=== PATIENT | male | born 1970 | race Caucasian/White ===

== ENCOUNTER 2018-10-07 22:50 | Emergency (ER) | payer OTHER ==
[~2018-10-07] VITALS: Ht 188 cm; Wt 70.8 kg
[~2018-10-07 22:50] MED LIST: ATEN25 PO; CRUTCH USE; HYDACE5 PO; LISI20 PO; NAPR550 PO; OXYACE5T PO; Percocet 5-3251 EACH PO
[2018-10-07] MEDS ORDERED: BRINTELLIX10 MG PO (22:59)
== END 2018-10-08 00:55 | disposition home or self-care (01) ==
LOC: ER 22:50
DX: R19.05 Periumbilic swelling, mass or lump (principal); Z79.899 Other long term (current) drug therapy; F17.200 Nicotine dependence, unspecified, uncomplicated
CPT/HCPCS: 99282

== ENCOUNTER 2020-12-17 13:09 | Day surgery (SDC) | payer OTHER ==
[~2020-12-17] VITALS: Ht 190.5 cm; Wt 69.9 kg
[~2020-12-17 13:09] MED LIST changes: +BRINTELLIX10 MG PO; +BUPR150ER PO; +HYDHCL25 PO; +PROAIR DIGIHAL90 MCG INH
--- NOTE | 2020-12-17 13:50 | NUR ---
12/17/[address] WAS NOTIFIED THAT PT. TOOK A SIP OF SODA AT 1245. PER DR. DELEON OK TO PROCEED. PT. VERIFIED IT WAS ONLY A SIP & HE DID IT TO CALM HIS NERVES. PT. VERBALIZES BEING WARM ENOUGH. CALL LIGHT IS WITHIN REACH.
--- NOTE | 2020-12-17 15:39 | NUR ---
12/17/20 1539 Len Yang PT VERY DROWSY. OPENS EYES WHEN CALLING HIS NAME AND RESPONDS BY NODDING HEAD. VS WNL. WILL CONTINUE TO MONITOR.
== END 2020-12-17 15:56 | disposition home or self-care (01) ==
LOC: ORSCSDS 13:09
PROVIDERS: Student in an Organized Health Care Education/Training Program
PROC: 0DBL8ZX Excision of Transverse Colon, Via Natural or Artificial Opening Endoscopic, Diagnostic (ICD-10-PCS; principal; 2020-12-17 14:15)
PROC: 0DBK8ZX Excision of Ascending Colon, Via Natural or Artificial Opening Endoscopic, Diagnostic (ICD-10-PCS; principal; 2020-12-17 14:15)
PROC: 0DBN8ZX Excision of Sigmoid Colon, Via Natural or Artificial Opening Endoscopic, Diagnostic (ICD-10-PCS; principal; 2020-12-17 14:15)
DX: Z12.11 Encounter for screening for malignant neoplasm of colon (principal); D12.5 Benign neoplasm of sigmoid colon; D12.3 Benign neoplasm of transverse colon; D12.2 Benign neoplasm of ascending colon; K57.30 Diverticulosis of large intestine without perforation or abscess without bleeding; F17.210 Nicotine dependence, cigarettes, uncomplicated; J45.909 Unspecified asthma, uncomplicated; I10 Essential (primary) hypertension; Z79.899 Other long term (current) drug therapy
CPT/HCPCS: 88305; J2250; J2704; J7120

== ENCOUNTER 2024-01-08 07:18 | Emergency (ER) | payer OTHER ==
[~2024-01-08] VITALS: Ht 188 cm; Wt 72.6 kg
[2024-01-08 11:20] VITALS: BP 130/83
== END 2024-01-08 11:33 | disposition home or self-care (01) ==
LOC: ER 07:18
DX: J44.1 Chronic obstructive pulmonary disease with (acute) exacerbation (principal); F17.200 Nicotine dependence, unspecified, uncomplicated

== ENCOUNTER 2024-03-20 10:21 | Inpatient (IN) | payer OTHER ==
[~2024-03-20] VITALS: Ht 182.9 cm; Wt 67.6 kg
[~2024-03-20 10:21] MED LIST changes: +ALBU90OI INH; +DOXY100 PO; +PRED20 PO
[2024-03-20] MEDS ORDERED: NS 1,000 ML IV SCH ×2 (11:10→13:45)
[2024-03-20] MEDS ORDERED: Ipratropium/Albuterol SulF 2.5-0.5MG/3 ML Amp INH ONE (11:15)
[2024-03-20] MEDS ORDERED: MethylPREDNISolone Sod Succ 125 MG Vial IV ONE (11:15)
[2024-03-20 11:29] LABS: BASOPHILS ABSOLUTE AUTO 0.06 K/mm3 (0.00-0.23); BASOPHILS PERCENT AUTO 1 % (0-2); EOSINOPHILS ABSOLUTE AUTO 0.18 K/mm3 (0.00-0.68); EOSINOPHILS PERCENT AUTO 2 % (0-6); Hematocrit 44.5 % (37.0-53.0); Hemoglobin 15.4 g/dL (13.5-17.5); IMMATURE GRAN ABSOLUTE AUTO 0.01 K/mm3 (0.00-0.10); IMMATURE GRAN PERCENT AUTO 0 % (0-1); LYMPHOCYTES ABSOLUTE AUTO 0.86 K/mm3 (0.84-5.20); LYMPHOCYTES PERCENT AUTO 12 % (21-46); MONOCYTES ABSOLUTE AUTO 1.93 K/mm3 (0.16-1.47); MONOCYTES PERCENT AUTO 26 % (4-13); Mean Corpuscular HGB 31.8 pg (26.0-34.0); Mean Corpuscular HGB Conc 34.6 g/dL (31.5-36.5); Mean Corpuscular Volume 92 fL (80-100); Mean Platelet Volume 8.6 fL (9.1-12.4); NEUTROPHILS ABSOLUTE AUTO 4.35 K/mm3 (1.96-9.15); NEUTROPHILS PERCENT AUTO 59 % (41-73); Platelet Count 306 K/mm3 (150-400); RDW Coefficient Variation 11.9 % (11.7-14.2); RDW Standard Deviation 40.5 fL (35.1-46.3); Red Blood Cell Count 4.84 M/mm3 (4.30-5.90); White Blood Cell Count 7.39 K/mm3 (4.00-11.30)
[2024-03-20 11:54] LABS: Albumin, Blood 3.5 g/dL (3.4-5.0); Albumin/Globulin Ratio 0.9 (0.8-1.8); Bilirubin, Total 0.4 mg/dL (0.1-1.0); Bun/Creatinine Ratio 13.4 (12.0-20.0); Calcium, Blood 8.3 mg/dL (8.5-10.1); Creatinine, Blood 0.82 mg/dL (0.60-1.20); Globulin, Blood 3.9 g/dL (2.2-4.0); Potassium, Blood 3.6 mmol/L (3.5-5.5); Total Protein, Blood 7.4 g/dL (6.4-8.2)
[2024-03-20 12:44] LABS: Influenza A, PCR NEGATIVE (NEGATIVE); Influenza B, PCR NEGATIVE (NEGATIVE); Resp Syncytial Virus, PCR NEGATIVE (NEGATIVE)
[2024-03-20 12:45] LABS: SARS-Cov-2 (COVID-19) PCR, MMC POSITIVE (NEGATIVE)
[2024-03-20] MEDS ORDERED: Aspirin 325 MG Tab PO ONE (13:05)
[2024-03-20] MEDS ORDERED: Clopidogrel Bisulfate 75 MG Tab PO ONE (13:05)
[2024-03-20] MEDS ORDERED: Ondansetron HCl 2 MG / ML 2ML Vial IV PRN (13:45)
[2024-03-20] MEDS ORDERED: Acetaminophen 650 MG Supp PR PRN (13:45)
--- NOTE | 2024-03-20 15:18 | NUR ---
REPORT RECIEVED FROM ER NURSE, TIMOTHY, AT 1510.
[2024-03-20 15:50] VITALS: BP 145/100
[2024-03-20] MEDS ORDERED: MethylPREDNISolone Sod Succ 125 MG Vial IV SCH (16:00)
--- NOTE | 2024-03-20 17:16 | NUR ---
ARRIVAL TO PCU PT ARRIVED TO PCU AT 1535 VIA GURNEY AND ON RA. PT ABLE TO TRANSFER TO HOSPITAL BED WITH SOME ASSISTANCE FROM STAFF, PT HAD SLIGHT LIMITATION BUT TOLERATED WELL USING FWW. PT A/OX4. PT REPORTED NUMBNESS TO HIS LEFT EXTREMITIES BUT ALSO STATED THAT HE PREVIOUS HAD A BONE SPUR IN HIS SPINE THAT CAUSED SOME THE HIS NUMBNESS. PT DID REPORT THAT HIS NUMBNESS HAS INCREASED THAT LAST 2 DAYS. PT RIGHT HAND AND FOOT NORMAL STRENGTH, LEFT WEAKER BUT PT ABLE TO USE EXTREMITIES. RIGH T FACIAL DROOP NOTED AT TIME OF ARRIVAL. PT REPORTED "THROBBING PAIN BEHIND MY EYES."
--- NOTE | 2024-03-20 18:15 | NUR ---
SHIFT SUMMARY NO ACUTE CHANGES SINCE ARRIVAL TO UNIT, SEE PREVIOUS NOTES. FAMILY PRESENT AND UPDATED. PT HAD MARKET RESEARCH ANALYST AND CANNABIS CONTAINER IN HIS POCKET AT TIME OF ARRIVAL. PT WILLING ALLOWED STAFF TO LOCK IN LOCK BOX OUTSIDE OF ROOM.
[2024-03-20] MEDS ORDERED: Albuterol 2.5 MG/3 ML VIAL INH PRN (19:30)
[2024-03-20] MEDS ORDERED: Mometasone/Formoterol MDI 100/5 mcg 13 GM INH SCH (19:35)
[2024-03-20] MEDS ORDERED: Ipratropium/Albuterol SulF 2.5-0.5MG/3 ML Amp INH SCH (19:35)
[2024-03-20 19:46] VITALS: BP 140/100
--- NOTE | 2024-03-21 05:39 | NUR ---
SHIFT SUMMERY PT IS ALERT AND ORIENTED X4, HAS A STAGGERED GAIT BUT PT REPORTS THAT HE HAS HAD THAT FOR YEARS. HE HAS BEEN NON COMPLIANT W/CARE OVERNIGHT, YELLING AT STAFF AND THREATENING TO LEAVE AMA. PT AGREEDED TO STAY UNTIL THIS AM BUT STATED IF HE DID NOT GET CLEARED TO EAT BY 7AM HE WAS LEAVING AMA. CHARGE NURSE AWARE AND PT EDUCATED ON RISKS OF LEAVING AMA. VS HAVE BEEN STABLE AND PT HAS HAD NO ACUTE EPISODES OF HEMODYNAMIC INSTABILITY OVERNIGHT.
[2024-03-21 05:40] VITALS: BP 154/98
[2024-03-21 08:27] VITALS: BP 151/106
[2024-03-21] MEDS ORDERED: Aspirin 81 MG Chew PO SCH (12:00)
[2024-03-21] MEDS ORDERED: Atorvastatin 40 MG Tab PO SCH (12:00)
[2024-03-21] MEDS ORDERED: Clopidogrel Bisulfate 75 MG Tab PO SCH (12:00)
[2024-03-21 16:29] VITALS: BP 149/111
--- NOTE | 2024-03-21 17:45 | NUR ---
TRANSFER FROM PCU PATIENT ALERT AND INTERACTIVE. PATIENT KEEPING R EYE CLOSED BECAUSE OF DOUBLE VISION. PATIENT ANXIOUS AT BEDSIDE BUT COOPERATIVE. PATIENT HOPEFUL TO GO HOME TOMORROW. PATIENT AMBULATING INDEPENDENTLY IN ROOM WITH WALKER. PATIENT STATES L SIDED WEAKNESS HAS IMPROVED SINCE HOSPITALIZATION. PT STATES HE HAS A HX OF NUMBNESS TO L HAND AND L LEG BELOW THE KNEE BECAUSE OF PREVIOUS NECK SURGERY. PATIENT EATING REGULAR FOOD AND DRINKING FLUIDS WITHOUT DIFFICULTY.
--- NOTE | 2024-03-21 18:02 | NUR ---
TRANSFER UPDATE REPORT GIVEN TO MED FLOOR RN AT 1656. PT TRANSFERED AT 1730 VIA WHEELCHAIR AND ON RA. PT BELONGINGS WITH PT AT TIME OF TRANSFER. PT PLANT EQUIPMENT ENGINEER AND CANNABIS CAN IN GREEN BAG AFTER RETRIEVING FROM LOCKED BOX AND GIVEN TO MED FLOOR RN TO PLACE IN LOCK BOX AT NEW ROOM. PT ABLE TO TRANSFER TO AND FROM WHEELCHAIR ON HIS OWN.
[2024-03-21 19:27] VITALS: BP 147/105
[2024-03-22 04:10] VITALS: BP 144/94
--- NOTE | 2024-03-22 04:15 | NUR ---
CROWNING HAMMER OPERATOR NOTES PATIENT IS A&OX4, VITALS ARE SLIGHTLY ELEVATED, ON TELE RUNNING SINUS RHYTHM AT 91 WITH OCCISIONAL SINUS TACHY AT 115. ON ROOM AIR, SHADOW BREATHING NOTICED BUT PATIENT DENIED ANY DIFFICULTY BREATHING. PATIENT IS ON ISOLATION FOR PROLONGED COVID POSITIVE. NO SYMPTOMS NOTICED. PATIENT CURRENT DIAGNOSIS IS PELAEZ POLSY, HAS A RIGHT EYE AND RIGHT FACIAL DROOP, COMPLAIN OF BLURR VISION TO THE RIGHT EYE. COMPLAIN OF NUMBNESS TO LEFT SIDE OF BODY AND NECK. PATIENT DIET IS REGULAR BUT NO STREW RECOMMENDED BY SPEECH.
[2024-03-22 08:05] VITALS: BP 133/84
[2024-03-22] MEDS ORDERED: PredniSONE 20 MG Tab PO SCH (09:00)
[2024-03-22] MEDS ORDERED: AmLODIPine Besylate 5 MG Tab PO SCH (09:00)
[2024-03-22] MEDS ORDERED: Aspir 8181 MG PO (10:29)
[2024-03-22] MEDS ORDERED: Prednisone20 MG PO (10:29)
[2024-03-22] MEDS ORDERED: AMLO5 PO (10:29)
[2024-03-22] MEDS ORDERED: ATOR40TA PO (10:30)
[2024-03-22] MEDS ORDERED: CLOP75 PO (10:30)
[2024-03-22] MEDS ORDERED: DULERA 100 MCG/13 GM INH (10:33)
--- NOTE | 2024-03-22 17:07 | NUR ---
SHIFT SUMMARY AND DISCHARGE PATIENT ALERT AND INTERACTIVE. PATIENT AMBULATING INDEPENDENTLY IN THE ROOM USING A WALKER. PATIENT DENIES ANY PAIN OR SHORTNESS OF BREATH. PATIENT STATES THAT HIS L SIDE WEAKNESS IS ALMOST GONE. COMPAIRED TO WHEN HE CAME IN. PATIENT CONTINUES TO HAVE NUMBNESS OF L HAND AND BELOW L KNEE WHICH IS BASELINE. R FACIAL DROOP AND R EYE LID DROOP STILL PRESENT. PATIENT ABLE TO OPEN R EYE ON DEMAND. R EYE OPENS MORE WHEN L EYE COVERED. EYE PATCH GIVEN TO PATIENT TO USE PERIODICALLY TO EXERCISE R EYE LID. DISCHARGE INSTRUCTIONS REVIEWED WITH PATIENT. IV DC'D AND PATIENT TAKEN OUT VIA WHEELCHAIR BY GENERATOR MAN. MOTHER PRESENT FOR DISCHARGE. FALL RISK AND SAFETY MEASURES FOR AT HOME DISCUSSED.
== END 2024-03-22 11:52 | disposition home or self-care (01) | DRG 64 ==
LOC: ER 10:21 → PCU 13:42 → MEDS 03-21 17:18 → ENPENDDIS 03-22 10:09 → MEDS 03-22 11:52
PROVIDERS: Emergency Medicine; ADMIT Internal Medicine
DX: I63.9 Cerebral infarction, unspecified (principal); U07.1 COVID-19; J44.1 Chronic obstructive pulmonary disease with (acute) exacerbation; R47.1 Dysarthria and anarthria; M54.12 Radiculopathy, cervical region; H53.2 Diplopia; R27.0 Ataxia, unspecified; Z79.52 Long term (current) use of systemic steroids
CPT/HCPCS: 0241U; 70450; 70496; 70498; 70551; 71045; 80053; 85025; 92526; 92610; 93005; 93010; 93306; 94640; 94664; 94760; 96361; 96374-59; 97112; 97112-CQ; 97116; 97162; 97165; 99285-25; A9270; J2919; J7030; J7512; Q9967

== ENCOUNTER 2024-06-03 20:49 | Emergency (ER) | payer OTHER ==
[~2024-06-03] VITALS: Ht 180.3 cm; Wt 74.8 kg
[~2024-06-03 20:49] MED LIST changes: +AMLO5 PO; +ATOR40TA PO; +Aspir 8181 MG PO; +CLOP75 PO; +DULERA 100 MCG/13 GM INH; +Prednisone20 MG PO
[2024-06-03 21:12] VITALS: BP 185/94
[2024-06-03] MEDS ORDERED: Diphth,Pertuss(Acell),Tet Vac 0.5 ML VIAL IM ONE (22:50)
== END 2024-06-03 22:57 | disposition home or self-care (01) ==
LOC: ER 20:49
DX: S71.112A Laceration without foreign body, left thigh, initial encounter (principal); W26.0XXA Contact with knife, initial encounter; J44.9 Chronic obstructive pulmonary disease, unspecified; F17.200 Nicotine dependence, unspecified, uncomplicated; Z23 Encounter for immunization; Z79.899 Other long term (current) drug therapy; Z79.82 Long term (current) use of aspirin
CPT/HCPCS: 12002; 90471; 90715; 99282-25

== ENCOUNTER → 2024-06-06 | Outpatient (CLI) | payer OTHER ==
[2024-06-06 16:19] LABS: BASOPHILS PERCENT AUTO 1 % (0-2); EOSINOPHILS PERCENT AUTO 4 % (0-6); Hematocrit 40.4 % (37.0-53.0); Hemoglobin 13.3 g/dL (13.5-17.5); IMMATURE GRAN ABSOLUTE AUTO 0.04 K/mm3 (0.00-0.10); IMMATURE GRAN PERCENT AUTO 0 % (0-1); LYMPHOCYTES PERCENT AUTO 12 % (21-46); MONOCYTES ABSOLUTE AUTO 1.39 K/mm3 (0.16-1.47); MONOCYTES PERCENT AUTO 12 % (4-13); Mean Corpuscular HGB 31.1 pg (26.0-34.0); Mean Corpuscular HGB Conc 32.9 g/dL (31.5-36.5); Mean Corpuscular Volume 94 fL (80-100); Mean Platelet Volume 8.8 fL (9.1-12.4); NEUTROPHILS ABSOLUTE AUTO 8.04 K/mm3 (1.96-9.15); NEUTROPHILS PERCENT AUTO 71 % (41-73); Platelet Count 366 K/mm3 (150-400); RDW Coefficient Variation 12.2 % (11.7-14.2); RDW Standard Deviation 42.2 fL (35.1-46.3); Red Blood Cell Count 4.28 M/mm3 (4.30-5.90); White Blood Cell Count 11.27 K/mm3 (4.00-11.30)
[2024-06-06 16:31] LABS: Albumin, Blood 3.2 g/dL (3.4-5.0); Albumin/Globulin Ratio 0.9 (0.8-1.8); Bilirubin, Total 0.6 mg/dL (0.1-1.0); Bun/Creatinine Ratio 9.6 (12.0-20.0); Calcium, Blood 8.1 mg/dL (8.5-10.1); Creatinine, Blood 0.83 mg/dL (0.60-1.20); Globulin, Blood 3.5 g/dL (2.2-4.0); Potassium, Blood 3.5 mmol/L (3.5-5.5); Total Protein, Blood 6.7 g/dL (6.4-8.2)
== END ==
LOC: LAB 16:14 → LAB SHORT 16:14
PROVIDERS: Chiropractor
DX: L03.116 Cellulitis of left lower limb (principal); R22.42 Localized swelling, mass and lump, left lower limb
CPT/HCPCS: 80053; 84550; 85025; 85379

== ENCOUNTER 2024-07-13 00:15 | Emergency (ER) | payer OTHER ==
[~2024-07-13] VITALS: Ht 188 cm; Wt 72.6 kg
[2024-07-13] MEDS ORDERED: SULTRIDS PO (00:35)
[2024-07-13 02:09] LABS: BASOPHILS ABSOLUTE AUTO 0.08 K/mm3 (0.00-0.23); BASOPHILS PERCENT AUTO 1 % (0-2); EOSINOPHILS ABSOLUTE AUTO 0.32 K/mm3 (0.00-0.68); EOSINOPHILS PERCENT AUTO 4 % (0-6); Hematocrit 37.2 % (37.0-53.0); Hemoglobin 12.8 g/dL (13.5-17.5); IMMATURE GRAN ABSOLUTE AUTO 0.02 K/mm3 (0.00-0.10); IMMATURE GRAN PERCENT AUTO 0 % (0-1); LYMPHOCYTES PERCENT AUTO 15 % (21-46); MONOCYTES ABSOLUTE AUTO 1.19 K/mm3 (0.16-1.47); MONOCYTES PERCENT AUTO 13 % (4-13); Mean Corpuscular HGB Conc 34.4 g/dL (31.5-36.5); Mean Corpuscular Volume 93 fL (80-100); Mean Platelet Volume 8.5 fL (9.1-12.4); NEUTROPHILS ABSOLUTE AUTO 5.96 K/mm3 (1.96-9.15); NEUTROPHILS PERCENT AUTO 67 % (41-73); Platelet Count 442 K/mm3 (150-400); RDW Coefficient Variation 12.1 % (11.7-14.2); RDW Standard Deviation 41.9 fL (35.1-46.3); White Blood Cell Count 8.87 K/mm3 (4.00-11.30)
[2024-07-13 02:11] LABS: Albumin, Blood 3.4 g/dL (3.4-5.0); Albumin/Globulin Ratio 1.1 (0.8-1.8); Bilirubin, Total 0.3 mg/dL (0.1-1.0); Bun/Creatinine Ratio 15.6 (12.0-20.0); Calcium, Blood 8.4 mg/dL (8.5-10.1); Creatinine, Blood 0.77 mg/dL (0.60-1.20); Globulin, Blood 3.1 g/dL (2.2-4.0); Total Protein, Blood 6.5 g/dL (6.4-8.2)
[2024-07-13 03:09] VITALS: BP 150/100
== END 2024-07-13 03:10 | disposition home or self-care (01) ==
LOC: ER 00:15
PROVIDERS: Student in an Organized Health Care Education/Training Program
DX: R60.0 Localized edema (principal); J44.9 Chronic obstructive pulmonary disease, unspecified; F17.200 Nicotine dependence, unspecified, uncomplicated
CPT/HCPCS: 73590; 80053; 85025; 93971

== ENCOUNTER 2024-11-15 10:14 | Day surgery (SDC) | payer OTHER ==
[2024-11-15] VITALS (12 sets, daily range): BP systolic 114–163; BP diastolic 54–101
[~2024-11-15] VITALS: Ht 188 cm; Wt 69.9 kg
[~2024-11-15 10:14] MED LIST changes: +Lactated Ringer's 1,000 ML IV SCH; +SULTRIDS PO; +TRELEGY ELLIPT1 EACH INH
[2024-11-15] MEDS ORDERED: FentaNYL Citrate 50 MCG/ML 2 ML Injection ONE ×2 (10:30→11:39)
[2024-11-15] MEDS ORDERED: Midazolam HCl 1MG / ML 2ML Vial ONE (10:30)
[2024-11-15] MEDS ORDERED: propofoL 20 ML IV ONE (10:30)
[2024-11-15] MEDS ORDERED: Rocuronium Bromide 10 MG/ML 5ML Injection IV ONE ×2 (10:32→11:49)
[2024-11-15] MEDS ORDERED: TRELEGY ELLIPT1 EACH (10:42)
[2024-11-15] MEDS ORDERED: Bupivacaine 0.5% HCl 5 MG/ML 30MLVIAL ONE ×2 (10:49→10:51)
--- NOTE | 2024-11-15 10:57 | NUR ---
Ambulatory in Day SurgeryPre-Op teaching done. Pt verbalizes understanding. History, Chart, Medications and Allergies reviewed before start of procedure.Patient confirms NPO status and agrees with scheduled surgery. Patient reports completing Chlorhexadine shower X1 prior to admission to hospital.Patient States Post-Procedure ride home has been arranged.
[2024-11-15] MEDS ORDERED: Bupivacaine 0.25% Epi 1:200000 30 ML Vial ONE (11:02)
[2024-11-15] MEDS ORDERED: CeFAZolin Sodium 2,000 MG in NS 100 ML IV SCH (11:05)
[2024-11-15] MEDS ORDERED: CeFAZolin Sodium 2,000 MG VIAL ONE (11:05)
[2024-11-15] MEDS ORDERED: Ketorolac Tromethamine 30mg Vial ONE (11:17)
[2024-11-15] MEDS ORDERED: Bupivacaine 0.25% Epi 1:200000 30 ML Vial INJ ONE (11:25)
[2024-11-15] MEDS ORDERED: HYDROmorphone HCl/Pf 1MG SYR ONE (12:24)
[2024-11-15] MEDS ORDERED: Sugammadex Sodium 200 MG/2ML SDV (100 MG/ML) ONE (12:32)
[2024-11-15] MEDS ORDERED: HYDROcodone 5-APAP 325 TAB PO PRN (13:00)
--- NOTE | 2024-11-15 14:03 | NUR ---
Discharge instructions reviewed with patient. Patient verbalizes understanding. Copy given to patient to take home. Patient States Post-Procedure ride home has been arranged. Discharged via wheelchair to private car for ride home.
== END 2024-11-15 23:00 | disposition home or self-care (01) ==
LOC: ORSCMMR 10:14 → ORD 11:30 → ORSCMMR 11:30
PROVIDERS: Surgery
PROC: 8E0W4CZ Robotic Assisted Procedure of Trunk Region, Percutaneous Endoscopic Approach (ICD-10-PCS; principal; 2024-11-15 11:30)
PROC: 0YUA4JZ Supplement Bilateral Inguinal Region with Synthetic Substitute, Percutaneous Endoscopic Approach (ICD-10-PCS; principal; 2024-11-15 11:30)
PROC: 0WUF0JZ Supplement Abdominal Wall with Synthetic Substitute, Open Approach (ICD-10-PCS; principal; 2024-11-15 11:30)
DX: K40.20 Bilateral inguinal hernia, without obstruction or gangrene, not specified as recurrent (principal); K43.6 Other and unspecified ventral hernia with obstruction, without gangrene; J44.9 Chronic obstructive pulmonary disease, unspecified; I10 Essential (primary) hypertension; J44.89 Other specified chronic obstructive pulmonary disease; Z87.891 Personal history of nicotine dependence; Z86.73 Personal history of transient ischemic attack (TIA), and cerebral infarction without residual deficits; Z86.16 Personal history of COVID-19; F41.9 Anxiety disorder, unspecified; F32.A Depression, unspecified; Z79.899 Other long term (current) drug therapy
CPT/HCPCS: C1781; J0690; J1171; J1885; J2250; J2704; J3010; J7120